=== PATIENT | female | born 1955 | race Caucasian/White ===

== ENCOUNTER 2017-04-22 10:51 | Outpatient (CLI) | payer OTHER ==
--- NOTE | ~2017-04-22 | HEMODYNAMI ---
PATIENT:CRISTOPHER HERNANDEZ MEDICAL RECORD: [id number] : 55 LOCATION:[facility] ADMISSION DATE: 04/22/17 Generatedon:04/22/201713:46 Patient name: CRISTOPHER HERNANDEZ Patient #: [id number] SSN: : 1955 Date of study: 04/22/2017 Page: Of Hemodynamic Procedure Report Patient Data Patient Demographics Procedure consent was obtained First Name: CRISTOPHER Gender: Female Last Name: MARY : 1955 [facility] Initial: JOSE Age: 61 year(s) Patient #: [id number] Race: Unknown Additional ID: [id number] Contact details Address: [address] [place] [address] State: [place] City: [place] Zip code: [address] Past Medical History Allergies Allergen Reaction Date Comments Reported Other allergy 04/22/2017 morphine Admission Admission Data Admission Date: 04/22/2017 Admission Time: 10:51 Admit Source: Other Lab Results Lab Result Date: 04/22/2017 Lab Result Time: 11:25 Biochemistry Name Units Result Min Max BUN mg/dl 13 --(--*-)-- 7 18 Creatinine mg/dl 0.6 --(*---)-- 0.6 1.3 CBC Name Units Result Min Max Hematocrit % 39.3 -*(----)-- 42 54 Hemoglobin g/dl 13.4 -*(----)-- 13.5 17.5 Procedure Procedure Types Cath Procedure Diagnostic Procedure LHC LHC w/Coronaries Procedure Description Procedure Date Procedure Date: 04/22/2017 Procedure Start Time: 13:36 Procedure End Time: 13:44 Procedure Staff Name Function Julian Yañez MD Performing Physician Lobo Todd RT Monitor Kaya Lemons RT Scrub Angel Bennett RN Nurse Procedure Data Cath Procedure Fluoroscopy Diagnostic fluoroscopy Total fluoroscopy Time: 1 time: 1 min min Diagnostic fluoroscopy Total fluoroscopy dose: 199 dose: 199 mGy mGy Contrast Material Contrast Material Type Amount (ml) Isovue 300 33 Entry Location Entry Primary Successful Side Size Upsize Upsize Entry Closure Hussein ccessful Closure Location (Fr) 1 (Fr) 2 (Fr) Remarks Device Remarks Radial Right 6 Fr Mechanical artery Short Compression Estimated blood loss: 5 ml Diagnostic catheters Device Type Used For End Catheter Placement DIAGNOSTIC [place] 110cm 5 Procedure Fr catheter (009307) Procedure Complications No complications Procedure Medications Medication Administration Route Dosage 0.9% NaCl I.V. 100 ml/hr Oxygen NC 2 l/min Heparin Flush Bag added to field 2 bags (1000units/500ml NS) Lidocaine 2% added to field 20 Radial Cocktail added to field 1 syringe (Verapomil 2mg/Nitro 400mcg/Heparin 1500units) Versed I.V. 2 mg Fentanyl I.V. 100 mcg Radial Cocktail I.A. 1 syringe (Verapomil 2mg/Nitro 400mcg/Heparin 1500units) Hemodynamics Rest HGB: 13.4 (g/dl) Heart Rate: 77 (bpm) Pressure Samples Time Site Value (mmHg) Purpose Heart Use Rate(bpm) 13:39 LV 104/12,8 Snapshot 131 13:39 LV 100/16,10 Snapshot 133 13:39 AO (64) Pullback 123 Gradients Valve Time Site Site Mean SEP/DFP Peak To Heart Use 1 2 (mmHg) (sec/min) Peak Rate (mmHg) (bpm) Aortic 13:39 LV AO 11 30 123 (64) Calculations Valve P-P Mean Valve Index Valve Source Name Gradient Area Flow (cm2) Aortic 11 11 Snapshots Pre Cath Intra NCS Post Cath Vital Signs Time Heart Resp SPO2 etCO2 NIBP Rhythm Pain Sedation Rate (ipm) (%) (mmHg) (mmHg) Status Level (bpm) 13:32:32 75 37 97 37.2 123/81(95) NSR 0 (11) 10(A) , No pain 13:37:08 71 17 94 38.7 107/65(86) NSR 0 (11) 10(A) , No pain 13:41:40 99 35 94 45.5 111/74(92) NSR 0 (11) 10(A) , No pain Medications Time Medication Route Dose Verified Delivered Reason Notes Effectiveness by by 13:30:44 0.9% NaCl I.V. 100 Angel Angel Per ml/hr Donald Bennett physician RN RN 13:30:59 Oxygen NC 2 l/min Angel Angel Per Donald Bennett physician RN RN 13:31:15 Heparin Flush added 2 bags Angel Angel used for Bag to Lorigan Lorevelia procedure (1000units/500ml field RN RN NS) 13:31:30 Lidocaine 2% added 20ml Angel Angel for local to vial Lorigan Lorigan anesthetic field RN RN 13:31:43 Radial Cocktail added 1 Angel Angel used for (Verapomil to syringe Lorigan Lorigan procedure 2mg/Nitro field RN RN 400mcg/Heparin 1500units) 13:34:58 Versed I.V. 2 mg Angel Angel for sedation Donald Bennett RN, RN 13:35:10 Fentanyl I.V. 100 mcg Angel Angel for sedation Donald Bennett RN RN 13:38:35 Radial Cocktail I.A. 1 Angel Julian for (Verapomil syringe Lorigan Otilio vasodilation 2mg/Nitro RN 400mcg/Heparin 1500units) Procedure Log Time Note 13:00:20 Angel Bennett RN sent for patient. Start room use. 13:15:22 Informed consent obtained and on chart 13:15:26 Admit Source: Other 13:16:18 Diagnostic Cath status Elective 13:16:21 Time tracking: Regular hours 13:16:25 Plan of Care:Hemodynamics will remain stable., Cardiac rhythm will remain stable., Comfort level will be maintained., Respiratory function will remain adequate., Patient/ family verbilizes understanding of procedure., Procedure tolerated without complication., Recovers from procedure without complications.. 13:16:53 Patient received from Pre/Post Procedure Room to CCL 1 Alert and oriented. Tansferred to table in Supine position. 13:16:55 Warm blankets applied, and jorge alberto hugger turned on for patient comfort. 13:16:56 Correct patient and procedure confirmed by team. 13:17:02 ECG and BP/O2 sat monitors applied to patient. 13:17:27 H&P Date Dictated: 04/13/2017 Within 30 days and on chart., H&P Addendum completed by physician on day of procedure. (MUST COMPLETE FOR ALL OUTPATIENTS). 13:30:44 0.9% NaCl 100 ml/hr I.V. was administered by Angel Lorigan RN; Per physician; 13:30:59 Oxygen 2 l/min NC was administered by Angel Bennett RN; Per physician; 13:31:15 Heparin Flush Bag (1000units/500ml NS) 2 bags added to field was administered by Angel Bennett RN; used for procedure; 13:31:30 Lidocaine 2% 20ml vial added to field was administered by Angel Bennett RN; for local anesthetic; 13:31:43 Radial Cocktail (Verapomil 2mg/Nitro 400mcg/Heparin 1500units) 1 syringe added to field was administered by Angel Bennett RN; used for procedure; 13:31:45 Vital chart was started 13:32:03 Baseline sample Acquired. 13:32:07 Rhythm: sinus rhythm 13:32:09 Full Disclosure recording started 13:32:10 Pre-procedure instructions explained to patient. 13:32:11 Pre-op teaching completed and patient verbalized understanding. 13:32:13 Family in waiting room. 13:32:14 Patient NPO since Midnight. 13:32:25 Patient allergic to Other allergymorphine 13:32:29 Is the patient allergic to Iodine/contrast media? No. 13:32:30 Is patient on blood thinner?No 13:32:31 Patient diabetic? No. 13:32:34 Previous problem with sedation/anesthesia? No ? 13:32:44 Snore? Yes 13:32:45 Sleep apnea? No 13:32:46 Deviated septum? No 13:32:46 Opens mouth fully? Yes 13:32:47 Sticks out tongue? Yes 13:32:49 Airway obstruction? No ? 13:32:51 Dentures? No ? 13:32:54 Modified Terrence's test Ulnar < 7 seconds 13:32:56 Patient pain scale 0/10 ?. 13:33:06 IV patent on arrival in left antecubital with 0.9% NaCl at [facility]. 13:34:20 Lab Result : BUN 13 mg/dl 13:34:20 Lab Result : Creatinine 0.6 mg/dl 13:34:20 Lab Result : Hemoglobin 13.4 g/dl 13:34:20 Lab Result : Hematocrit 39.3 % 13:34:23 Lab results completed and on chart. 13:34:25 Right Radial & Right Groin area was prepped with chlora-prep and draped in sterile fashion 13:34:26 Alarms reviewed by R. N. 13:34:27 Sharps counted by scrub and verified by R.N. 13:34:29 Use device set Radial Dx or PCI 13:34:30 ACIST Syringe (11679) opened to sterile field. 13:34:30 Medline Cath Pack ([id number]) opened to sterile field. 13:34:31 Bag Decanter (2002S) opened to sterile field. 13:34:32 ACIST Hand Control (41868) opened to sterile field. 13:34:33 ACIST Manifold (09698) opened to sterile field. 13:34:33 Tegaderm 4 x 4 (1626W) opened to sterile field. 13:34:38 SHEATH 6FR Slender ([id number]) opened to sterile field. 13:34:38 DIAGNOSTIC WIRE .035 260cm J wire (521747) opened to sterile field. 13:34:39 MBrace Wrist Support ([id number]) opened to sterile field. 13:34:43 Physician arrived 13:34:44 --------ALL STOP TIME OUT------ 13:34:44 Final Timeout: patient, procedure, and site verified with staff and physician. All members of the team are in agreement. 13:34:46 Right Radial & Right Groin site verified by team. 13:34:50 Physical assessment completed. ASA score P 2 - A patient with mild systemic disease as per Julian Yañez MD. 13:34:54 Sedation plan: IV Moderate Sedation Medication:Versed, Fentanyl 13:34:58 Versed 2 mg I.V. was administered by Angel Bennett RN; for sedation; 13:34:58 Procedure started. 13:35:02 Zero performed for pressure channel P1 13:35:10 Fentanyl 100 mcg I.V. was administered by Angel Bennett RN; for sedation; 13:36:01 Local anesthetic to right radial artery with Lidocaine 2% by Julian Yañez MD.INITIAL ACCESS ONLY 13:36:38 A 6 Fr Short sheath was inserted into the Right Radial artery 13:37:41 A DIAGNOSTIC [place] 110cm 5 Fr catheter ([id number]) was advanced over the wire and used for Procedure. 13:38:35 Radial Cocktail (Verapomil 2mg/Nitro 400mcg/Heparin 1500units) 1 syringe I.A. was administered by Julian Yañez MD; for vasodilation; 13:39:14 LV gram done using VÁSQUEZ 13:39:16 Injector settings: Ml/sec: 5, Volume: 15, 13:39:36 EF : 55 % 13:39:40 LV hemodynamics recorded. 13:39:44 LCA angiography performed. 13:40:41 RCA angiography performed. 13:40:42 Catheter removed. 13:40:46 TR BAND Standard ([id number]) opened to sterile field. 13:40:54 Sheath removed intact; hemostasis achieved with Mechanical Compression to the Right Radial artery. 13:40:55 Procedure ended.(Physican Out) 13:43:02 Fluoroscopy time 01.00 minutes. 13:43:07 Fluoroscopy dose: 199 mGy 13:43:07 Flurop Dose total: 199 13:43:15 Contrast amount:Isovue 300 33ml. 13:43:16 Sharps counted by scrub and verified by R.N. 13:43:19 TR band inflated with 10cc of air. 13:43:20 Insertion/operative site no bleeding no hematoma. 13:43:44 Post right radial artery:stable, soft, clean and dry 13:43:52 Post Procedure Pulses reassessed and unchanged 13:43:54 Post-procedure physical assessment completed. ASA score P 2 - A patient with mild systemic disease as per Julian Yañez MD. 13:43:56 Post procedure rhythm: unchanged. 13:43:59 Estimated blood loss: 5 ml 13:44:00 Post procedure instruction explained to patient.Patient verbalizes understanding. 13:44:01 Patient needs reinforcement of post procedure teaching. 13:44:25 Procedure and supply charges have been captured, reviewed, submitted and are correct. 13:44:28 Procedure Complication : No complications 13:44:30 Vital chart was stopped 13:44:32 See physician's report for complete and final results. 13:44:34 Report given to Pre/Post Procedure Room. 13:44:37 Patient transfered to Pre/Post Procedure Room with Stretcher. 13:44:39 Procedure ended. 13:44:39 Full Disclosure recording stopped 13:45:01 End room use (Document Last) Device Usage Item Name Manufacture Quantity Catalog Hospital Part Current Minima l Lot# / Number Charge Number Stock Stock Serial# Code ACIST Acist 1 68122 [id number] 737371 778483 20 Syringe Medical (84938) Systems Inc Medline Cath Cardinal 1 [id number] 121580 72773 911911 5 Pack Health ([id number]) Bag Decanter Microtek 1 2001S 293138 48222 937709 5 (2001S) Medical Inc. ACIST Hand Acist 1 18963 561387 031254 431790 5 Control Medical (69704) Systems Inc ACIST Acist 1 99738 381913 997712 923733 5 Manifold Medical (10170) Systems Inc Tegaderm 4 x 3M 1 1626W 105706 228091 381417 5 4 (1626W) SHEATH 6FR Terumo 1 [id number] 358304 687828 981008 40 Slender ([id number]) DIAGNOSTIC [facility] [place] 1 262313 533409 159607 720620 30 WIRE .035 260cm J wire (087955) MBrace Wrist Advanced 1 140-0250-00 381063 11699 678669 5 Support Vascular ([id number]) Dynamics DIAGNOSTIC Terumo 1 40-0073 425681 262475 729112 5 [place] 110cm 5 Fr catheter (953056) TR BAND Terumo 1 [id number] 830968 827380 761552 40 Standard ([id number]) Signature Audit [place] Stage Time Signature Unsigned Intra-Procedure 04/22/2017 Lobo Todd 1:46:43 PM RT(R) Signatures Monitor : Lobo Todd RT Signature : Date : Time : [facility] [address] [place] [address]
--- NOTE | ~2017-04-22 | OP ---
PATIENT NAME: CRISTOPHER HERNANDEZ MEDICAL RECORD: [id number] :55 LOCATION:[facility] ADMISSION DATE: SURGEON: RAMYA SOTO MD DATE OF OPERATION: 04/22/2017 PROCEDURES: Left heart catheterization, selective coronary angiography, right radial approach. CATHETERS: [place] catheter, radial sheath. The procedure was well tolerated. The patient was returned to [facility]. Sheath was removed. TR band was placed. FINDINGS: Left ventriculography in 30-degree VÁSQUEZ view: Normal wall motion. Normal systolic function. CORONARY ANATOMY: LEFT MAIN: Left main is free of disease. LAD: Free of disease in the diagonal system. CIRCUMFLEX: Free of disease in the marginal system. RIGHT CORONARY ARTERY: Dominant artery, gives rise to PDA, free of disease. IMPRESSION: Normal systolic function. Normal coronary anatomy. TRANSINT:[id number] Voice Confirmation ID: [id number] DOCUMENT ID: [id number] RAMYA SOTO MD at 1310 CC: [id number] DICTATION DATE: 04/22/17 1346 MANAGER SOCIAL RESPONSIBILITY: 04/22/17 1420 DEP CLI 04/22/17 [address] [address] [place] [address]
[2017-04-22] MEDS ORDERED: ZETIA10 MG PO (11:15)
[2017-04-22] MEDS ORDERED: GABAPENTIN100 MG PO (11:15)
[2017-04-22] MEDS ORDERED: ZOLOFT25 MG PO (11:15)
[2017-04-22] MEDS ORDERED: VITAMIN B-12500 MC1 PO (11:16)
[2017-04-22] MEDS ORDERED: VITAMIN D250000 UNIT PO (11:16)
[2017-04-22 11:27] VITALS: BP 129/82; BMI 29.3
[2017-04-22] MEDS ORDERED: DEXILANT60 MG PO (11:29)
[2017-04-22 12:41] LABS: BASOPHILS 0.4 % (0-2); EOSINOPHILS 1.9 % (0-7); HEMATOCRIT 39.9 % (36.0-48.0); HEMOGLOBIN 13.4 g/dL (12-16); IMMATURE GRANULOCYTES 0.3 % (0-5); LYMPHOCYTES 36.2 % (15-50); MCH 27.9 pg (26.0-34.0); MCHC 33.6 g/dL (31.0-37.0); MCV 83.1 fL (80.0-100.0); MEAN PLATELET VOLUME 9.4 fL (7.4-10.4); MONOCYTES 7.2 % (2-11); PLATELET COUNT 284 10x3/uL (130-400); RDW 13.2 % (11.5-14.5); WBC 7.2 10x3/uL (4.8-10.8)
[2017-04-22 13:06] LABS: CALC OSMOLALITY 272 mosm/kg (275-300); CARBON DIOXIDE 25.6 mmol/L (21.0-32.0); CHLORIDE - SERUM 102 mmol/L (98-107); CREATININE - SERUM 0.6 mg/dL (0.6-1.3); GLUCOSE 86 mg/dL (74-106); POTASSIUM - SERUM 3.6 mmol/L (3.5-5.1); SODIUM 137 mmol/L (136-145); UREA NITROGEN 13 mg/dL (7-18); eGFR NON AFRICAN AMERICAN > 90 mL/min (90-120)
== END 2017-04-22 16:00 | disposition home or self-care (01) ==
LOC: D.CATH 10:51
PROVIDERS: Internal Medicine Interventional Cardiology
DX: I20.9 Angina pectoris, unspecified (principal); Z01.812 Encounter for preprocedural laboratory examination